=== PATIENT | male | born 1970 | race Caucasian/White ===

== ENCOUNTER 2018-09-26 15:27 | Observation (INO) | payer BC ==
[~2018-09-26] VITALS: Ht 182.9 cm; Wt 127.0 kg
[~2018-09-26 15:27] MED LIST: CLONIDINE HCL0.1 MG PO; LISINOPRIL10 MG PO; LISINOPRIL2.5 MG PO; NEXIUM40 MG PO; PROZAC20 MG PO
[2018-09-26 15:58] VITALS: BP 181/101
[2018-09-26 16:06] VITALS: BP 181/101
--- NOTE | 2018-09-26 16:17 | NUR ---
patient received from [facility] standing ER via ambulance and stretcher. see admit assess. sinus tachy. no C/O CP at this time. Dr Jacky rangel per Dr Smith. awaiting return call.
[2018-09-26] MEDS ORDERED: LORAZEPAM INJ 2 MG/ML VIAL IV PRN (17:15)
[2018-09-26] MEDS ORDERED: HYDRALAZINE HCL 20 MG/ML VIAL IV PRN (17:15)
--- NOTE | 2018-09-26 17:27 | NUR ---
hydralazine 10mg given for BP 190/117
[2018-09-26] MEDS ORDERED: ACETAMINOPHEN 325 MG TAB PO PRN (19:00)
[2018-09-26 20:30] VITALS: BP 152/79
--- NOTE | 2018-09-26 20:30 | NUR ---
INITIAL ASSESSMENT COMPLETE, VS STABLE, B/P DOWN FROM EARLIER, NO C/O CHEST PAIN OR TWITCHING, NO ANXIETY AT THIS TIME, CALL LIGHT IN REACH, BM TODAY, NO DISTRESS NOTED, IV INTACT, TELE IN PLACE, TOLD TO CALL FOR NEEDS
[2018-09-26 21:39] LABS: CREATINE KINASE 490 IU/L (30-200)
--- NOTE | 2018-09-27 | NUR ---
VS STABLE, CONTINUE TO TREND DOWN, PT EASILY AWAKEN, CALL LIGHT IN REACH, NO DISTRESS NOTED
[2018-09-27 00:11] VITALS: BP 136/73
--- NOTE | 2018-09-27 00:58 | History and Physical ---
CHIEF COMPLAINT: Palpitations and high blood pressure. HISTORY OF PRESENT ILLNESS: The patient is a 48-year-old man with history of hypertension and gastroesophageal reflux disease, who presents with feeling unwell when he woke up this morning feeling like his heart was racing. He went to work and at work he felt very anxious. Continued to feel like his heart was racing. He had even more anxious because his father had at work due to an MN and he became concerned regarding his heart while he was at work. Due to his anxiety and feeling unwell, he checked his blood pressure which was very elevated and he was taken to the nearby ER and subsequently transferred here for further care. The patient says that he has been under a lot of stress lately, undergoing a divorce, renovating a house and trying to quit alcohol. He is a heavy drinker and used to drink as much as half a liter of vodka a day along with several beers and Tequila. Since his 48th birthday on this past Wednesday, he has been cutting back. He has quit vodka altogether and has only been drinking several beers a day to "take the edge off." Ever since then he has felt much more anxious and having palpitations. Denies any seizures or any episodes of syncope. No previous history of coronary artery disease. Has family history of early CAD. Had a stress test in his primary care doctor's office about two years back, which he reports was normal. PAST MEDICAL HISTORY: 1. Hypertension. 2. GERD. 3. Alcohol abuse. SOCIAL HISTORY: The patient is a heavy drinker as documented above. FAMILY HISTORY: The patient's father of anMI at the age of 50. REVIEW OF SYSTEMS: As per HPI, otherwise negative. OUTPATIENT MEDICATIONS: Please see medical record for list of outpatient medicines. ALLERGIES: THE PATIENT IS ALLERGIC TO PENICILLIN. OBJECTIVE: VITAL SIGNS: Temperature afebrile, pulse 107, respiratory rate 16, blood pressure 181/90, saturating 95% on room air. GENERAL: Obese white man, appears anxious and diaphoretic. CARDIOVASCULAR: Tachycardic, regular. No murmurs, rubs, or gallops. LUNGS: Clear to auscultation bilaterally. ABDOMEN: Obese, soft, nontender, nondistended. NEURO AND PSYCH: Alert and oriented to person, place, and time. Normal affect. INPATIENT MEDICATIONS: Reviewed. LABORATORY DATA: Reviewed. TELEMETRY DATA: Reviewed. Shows sinus tachycardia. ASSESSMENT: 1. Sinus tachycardia. 2. Atypical chest discomfort. 3. Hypertension. 4. Alcohol withdrawal. PLAN: We will start the patient on p.r.n. Ativan for alcohol withdrawals and p.r.n. hydralazine for elevated blood pressure. Rule out for acute MN. Symptoms are very atypical and likely related to his anxiety and trying to quit alcohol. If he rules out for acute MN, he can follow up with his primary care doctor on outpatient basis for outpatient stress test. Thank you for this consult. We will continue to follow. MD DAIN Villalta/HAIR /[id number]
[2018-09-27 04:00] VITALS: BP 140/75
--- NOTE | 2018-09-27 06:24 | NUR ---
PT AWAKE EASILY, NO DISTRESS NOTED, PT PULSE ELEVATES TO 150 WHEN HE WALKS TO THE BATHROOM HE STATES HE GETS SOB BUT THAT HAS BEEN HAPPENING. VS ARE STABLE, TOLD TO CALL FOR HELP OR NEEDS. TELE ON PT
--- NOTE | 2018-09-27 07:53 | NUR ---
pt alert resp even and unlabored at this time no distress noted, pt able to make needs known, pt has no c/o pain when asked, call light in reach.
[2018-09-27 08:22] LABS: CREATINE KINASE 443 IU/L (30-200)
[2018-09-27] MEDS ORDERED: CHLORDIAZEPOXIDE HCL 25 MG CAP PO PRN (08:45)
[2018-09-27] MEDS ORDERED: CLONIDINE HCL 0.1 MG TAB PO ONE ×2 (09:15→17:45)
--- NOTE | 2018-09-27 09:42 | Diagnostic Imaging Report ---
Examination: Single AP view of the chest. COMPARISON: None. INDICATION: Chest pain DISCUSSION: Limited due to body habitus and portable technique. The lungs are well-inflated and without consolidation, pleural effusion, or pneumothorax. Cardiomediastinal contour and pulmonary vasculature are within normal limits for portable, AP technique. No acute osseous abnormality. IMPRESSION: No acute cardiopulmonary abnormality. Signed by: Dr. Baljit Tate M.D. on 09/27/2018 9:38 AM
[2018-09-27] MEDS ORDERED: LISINOPRIL 10 MG TAB PO SCH (10:00)
[2018-09-27] MEDS ORDERED: FLUOXETINE HCL 20 MG CAP PO SCH (10:00)
[2018-09-27] MEDS ORDERED: MULTIVITAMINS- 12 INJECTION 10 ML, FOLIC ACID MDV 5 MG, THIAMINE HCL INJ 100 MG in SODI... IV ONE (10:00)
[2018-09-27] MEDS ORDERED: PANTOPRAZOLE SOD 40 MG TABEC PO SCH (10:00)
[2018-09-27 10:13] LABS: BASOPHILS # (AUTO) 0.1 (0.0-0.1); BASOPHILS % 1.2 % (0.0-1.0); EOSINOPHILS # (AUTO) 0.1 (0.0-0.4); EOSINOPHILS % 1.4 % (0.0-6.0); HEMOGLOBIN 15.5 g/dL (14.0-18.0); LYMPHOCYTES # (AUTO) 1.6 (1.0-3.2); LYMPHOCYTES % 25.3 % (18.0-39.1); MEAN CORPUSCULAR HEMOGLOBIN 33.8 pg (28-32); MEAN CORPUSCULAR HGB CONC 34.4 g/dL (31-35); MONOCYTES # (AUTO) 0.6 (0.2-0.8); MONOCYTES % 9.8 % (4.4-11.3); PLATELET COUNT 101 x10e3/uL (140-360); RED BLOOD COUNT 4.59 x10e6/uL (4.3-5.7)
[2018-09-27 10:27] LABS: ALANINE AMINOTRANSFERASE 42 IU/L (0-55); ALBUMIN 3.9 g/dL (3.5-5.0); ALBUMIN/GLOBULIN RATIO 0.8 (0.8-2.0); ALKALINE PHOSPHATASE 66 IU/L (40-150); ANION GAP 15.9 mmol/L (8-16); BLOOD UREA NITROGEN 14 mg/dL (7-26); BUN/CREATININE RATIO 15 (6-25); CALCIUM 9.6 mg/dL (8.4-10.2); CARBON DIOXIDE 26 mmol/L (22-29); CHLORIDE 96 mmol/L (98-107); CREATININE, SERUM 0.92 mg/dL (0.72-1.25); EST GLOMERULAR FILTRATION RATE > 60 ML/MIN (60-); GLUCOSE 106 mg/dL (74-118); POTASSIUM 3.9 mmol/L (3.5-5.1); SODIUM 134 mmol/L (136-145)
--- NOTE | 2018-09-27 11:41 | Consultation ---
DATE OF CONSULTATION: 09/27/2018 Medical Management Consult REASON FOR CONSULTATION: Medical management, hypertension, alcohol withdrawal, and anxiety. HISTORY OF PRESENT ILLNESS: This is a 48-year-old male with a past medical history of anxiety, depression, hypertension, and GERD. He was in usual state of health until the patient at work found to have the patient not feeling good, atypical chest pain and palpitation. The patient went to nearby [facility]. They called me and telephone surveyor to transfer the patient as per family request at [facility]. No more chest pain. The patient feeling better. No headache. No dizziness. No cough. No fever. No abdominal pain, nausea or vomiting. Leg pain or leg swelling. No hematemesis. No melena. PAST MEDICAL HISTORY: Hypertension, hyperlipidemia, anxiety, depression, GERD. PAST SURGICAL HISTORY: None. ALLERGIES: ALLERGIC TO PENICILLIN. SOCIAL HISTORY: The patient is and lives with his . HABITS: Denies smoking, but drinking alcohol heavily, but he stopped drinking on Wednesday. FAMILY HISTORY: Noncontributory. PHYSICAL EXAMINATION: GENERAL: A 48-year-old male, who is alert and oriented x3, in no gross distress. VITAL SIGNS: Temperature 97.6, pulse 106, respiratory rate 16, and blood pressure 114/75. HEENT: Head is atraumatic and normocephalic. Pupils bilaterally equal and reactive to light. Extraocular movements intact. NECK: Supple. No JVD. No carotid bruits. LUNGS: Clear to auscultation and percussion bilaterally. No added sounds. HEART: S1, S2. Regular rate and rhythm. No S3. No S4 or murmur. ABDOMEN: Soft, nontender. No guarding. No rigidity. EXTREMITIES: No edema. Peripheral pulse +1. COMPOTYPE OPERATOR: Grossly nonfocal. LABORATORY DATA: CK high. CK-MB and troponin negative. ASSESSMENT: 1. Atypical chest pain. 2. Anxiety and depression. 3. Alcohol withdrawal. 4. Hypertension. 5. Gastroesophageal reflux disease. PLAN: Continue home medicine, IV fluid, D5 half normal saline plus 100 mg thiamine, plus MVA at 100 mL/hour. CMP, CBC, magnesium today. Librium 25 q.8 p.r.n. for alcohol withdrawal, p.r.n. hydralazine for hypertension. The patient will be observed on telemetry. Cardiology consult by Dr. Sukhdeep Rico. MD CONNIE Campbell/HAIR /[id number]
--- NOTE | 2018-09-27 13:47 | Progress Note ---
DATE: 09/27/2018 Cardiology Progress Note SUBJECTIVE: The patient denies chest pain or shortness of breath. OBJECTIVE: VITAL SIGNS: Temperature 97.6 degrees, pulse 106, respiratory rate 16, blood pressure 140/75, oxygen saturation 93% on room air. GENERAL: Awake, alert, in no acute distress. LUNGS: Clear to auscultation bilaterally. No wheezes or crackles. CARDIOVASCULAR: Tachycardic but regular. No murmur. Normal S1, S2. ABDOMEN: Soft, nontender. EXTREMITIES: No edema. NEURO: Nonfocal exam. CARDIAC MEDICATIONS: Lisinopril 30 mg p.o. daily. LABORATORY DATA: WBC 6.43, hemoglobin 15.5, hematocrit 45, platelets 101. Sodium 134, potassium 3.9, chloride 96, CO2 of 26, BUN 14, creatinine 0.92. Troponin less than 0.001. Telemetry, sinus tachycardia. IMPRESSION: 1. Sinus tachycardia. 2. Atypical chest pain. 3. Alcohol withdrawal. 4. Hypertension. RECOMMENDATIONS: The patient ruled out for myocardial infarction. Resume home cardiac medications specifically lisinopril. Monitor patient on telemetry while admitted. Sinus tachycardia is likely related to the patient's alcohol withdrawal and anxiety. No further cardiac evaluation is indicated at this time. The patient was instructed to follow up with his primary care physician for outpatient nuclear stress test. Thank you for this consult. We will continue to follow. Celsa Laughlin MD ABS/MODL /[id number]
--- NOTE | 2018-09-27 14:25 | NUR ---
Visit made by the Spiritual Care Department Pastoral Visitor, Angelina Cespedes. PV provided pastoral presence, prayer, hospitality, and supportive listening. Pastoral Visitor informed pt/family of the scope of Guest Relations Executive Services and availability. CINTHIA CHICAS Director [facility] O: [phone] Pager: [phone] ([phone] calling from)
[2018-09-27 16:05] VITALS: BP 137/80
[2018-09-27] MEDS ORDERED: CLONIDINE HCL 0.1 MG TAB PO PRN (17:45)
== END 2018-09-27 19:52 | disposition home or self-care (01) ==
LOC: IMCU 15:27
PROVIDERS: ADMIT Internal Medicine; ATTEND Internal Medicine
DX: R07.89 Other chest pain (principal); R00.2 Palpitations; R55 Syncope and collapse; K21.9 Gastro-esophageal reflux disease without esophagitis; I10 Essential (primary) hypertension; F10.230 Alcohol dependence with withdrawal, uncomplicated; R00.0 Tachycardia, unspecified; Z82.49 Family history of ischemic heart disease and other diseases of the circulatory system; F41.9 Anxiety disorder, unspecified; F32.9 Major depressive disorder, single episode, unspecified
CPT/HCPCS: 36415 ×2; 71045; 80053; 82550 ×2; 82553 ×2; 83735; 84484 ×2; 85025; G0378 ×2; J0360; J2060; J3411; J7030; S0164